=== PATIENT | male | born 1955 | race Caucasian/White ===

== ENCOUNTER 2023-01-28 23:38 | Emergency (ER) | payer MEDICARE, OTHER ==
[~2023-01-28] VITALS: Ht 172.7 cm; Wt 68.0 kg
[2023-01-29] MEDS ORDERED: ALBUTEROL SULFATE 2.5 MG/3 ML NEBU NEB ONE
[2023-01-29] MEDS ORDERED: IPRATROPIUM BROMIDE 0.5 MG/2.5 ML NEBU NEB ONE
[2023-01-29] MEDS ORDERED: ALBUTEROL SULFATE 2.5 MG/3 ML NEBU ONE (00:06)
[2023-01-29] MEDS ORDERED: IPRATROPIUM BROMIDE 0.5 MG/2.5 ML NEBU ONE (00:06)
[2023-01-29 00:15] VITALS: O2SAT 98
[2023-01-29 00:18] LABS: BASOPHILS # (AUTO) 0.1 K/UL (0.0-0.2); BASOPHILS % (AUTO) 0.9 % (0.0-2.0); EOSINOPHILS # (AUTO) 0.1 K/uL (0.0-0.7); EOSINOPHILS % (AUTO) 1.5 % (0.0-7.0); HEMATOCRIT 46.7 % (36.7-47.1); HEMOGLOBIN 15.7 g/dL (12.5-16.3); LYMPHOCYTES # (AUTO) 2.9 K/uL (0.8-4.8); LYMPHOCYTES % (AUTO) 42.1 % (20.5-51.5); MEAN CORPUSCULAR HEMOGLOBIN 32.3 uug (23.8-33.4); MEAN CORPUSCULAR HGB CONC 34 g/dL (32.5-36.3); MEAN CORPUSCULAR VOLUME 95.8 fL (73.0-96.2); MONOCYTES # (AUTO) 0.5 K/uL (0.1-1.30); MONOCYTES % (AUTO) 7.7 % (0.0-11.0); NEUTROPHILS # (AUTO) 3.3 K/uL (1.8-8.9); NEUTROPHILS % (AUTO) 47.8 % (38.5-71.5); PLATELET COUNT (AUTO) 193 K/uL (152-348); RED BLOOD CELL COUNT(AUTO) 4.87 MIL/uL (4.06-5.63); RED CELL DISTRIBUTION WIDTH 14.3 % (12.1-16.2); WHITE BLOOD COUNT (AUTO) 6.8 K/uL (3.6-10.2)
[2023-01-29 00:20] LABS: DIFFERENTIAL COMMENT 1
[2023-01-29 00:23] VITALS: O2SAT 99
[2023-01-29 00:30] VITALS: O2SAT 99
[2023-01-29 00:31] LABS: ALBUMIN 3.7 g/dL (3.4-5.0); BILIRUBIN,TOTAL 0.6 mg/dL (0.2-1.0); CALCIUM 8.6 mg/dL (8.5-10.1); CREATININE 1.7 mg/dL (0.6-1.3); MAGNESIUM 2.3 mg/dL (1.8-2.4); POTASSIUM 3.5 mmol/L (3.5-5.1); TOTAL PROTEIN, SERUM 7.1 g/dL (6.4-8.2)
[2023-01-29] MEDS ORDERED: methylPREDNISolone SOD SUCC 125 MG/2 ML VIAL IV ONE (00:45)
[2023-01-29] MEDS ORDERED: CICL15CR12 TP (00:54)
[2023-01-29] MEDS ORDERED: ATEN25TA PO (00:54)
[2023-01-29] MEDS ORDERED: ESOM20CA PO (00:54)
[2023-01-29] MEDS ORDERED: LEVO175T7 PO (00:54)
[2023-01-29] MEDS ORDERED: ROSU10TA2 PO (00:54)
[2023-01-29] MEDS ORDERED: ERGO500040 PO (00:54)
[2023-01-29] MEDS ORDERED: ASPI81TA31 PO (00:54)
[2023-01-29] MEDS ORDERED: GABA300T25 PO (00:54)
[2023-01-29] MEDS ORDERED: DOCU100C36 PO (00:54)
[2023-01-29] MEDS ORDERED: CELE100C PO (00:54)
[2023-01-29] MEDS ORDERED: AMLO-212 PO (00:54)
[2023-01-29] MEDS ORDERED: CLOP75TA33 PO (00:54)
[2023-01-29] MEDS ORDERED: methylPREDNISolone SOD SUCC 125 MG/2 ML VIAL ONE (00:55)
[2023-01-29 03:45] VITALS: O2SAT 94
== END 2023-01-29 03:59 | disposition short-term general hospital (02) ==
LOC: ER 23:44
DX: I44.1 Atrioventricular block, second degree (principal); R06.02 Shortness of breath; J45.909 Unspecified asthma, uncomplicated; E78.5 Hyperlipidemia, unspecified; E03.9 Hypothyroidism, unspecified; F17.210 Nicotine dependence, cigarettes, uncomplicated; Z20.822 Contact with and (suspected) exposure to COVID-19
CPT/HCPCS: 99285; 71045; 87804 ×2; 36415; 93005; 96374; 87426; 80053; 83880; 83735; 85025; 84484; 94640; 83605; J2930; A4606; A4663; J3590

== ENCOUNTER 2025-01-26 00:40 | Emergency (ER) | payer MEDICARE, OTHER ==
[~2025-01-26] VITALS: Ht 172.7 cm; Wt 101.6 kg
[~2025-01-26 00:40] MED LIST: AMLO-212 PO; ASPI81TA31 PO; ATEN25TA PO; CELE100C PO; CICL15CR12 TP; CLOP75TA33 PO; DOCU100C36 PO; ERGO125010 PO; ESOM20CA PO; GABA300T25 PO; LEVO175T7 PO; ROSU10TA2 PO
[2025-01-26] MEDS ORDERED: AMOX500C2 PO (01:08)
[2025-01-26] MEDS ORDERED: HYDR-3972 PO (01:08)
[2025-01-26] MEDS ORDERED: MULT-1276 PO (01:08)
[2025-01-26] MEDS ORDERED: TAMS0.4C PO (01:08)
[2025-01-26] MEDS ORDERED: HYDROMORPHONE 1 MG/1 ML DISP.SYRIN ONE ×3 (01:20→05:06)
[2025-01-26] MEDS ORDERED: ONDANSETRON 4 MG/2 ML VIAL ONE (01:20)
[2025-01-26] MEDS: ONDANSETRON 4 MG/2 ML VIAL IV ONE (01:23)
[2025-01-26 01:24] LABS: PLATELET COUNT (AUTO) 301 K/uL (152-348); RED BLOOD CELL COUNT(AUTO) 4.78 MIL/uL (4.06-5.63); RED CELL DISTRIBUTION WIDTH 13.1 % (12.1-16.2); WHITE BLOOD COUNT (AUTO) 6.6 K/uL (3.6-10.2)
[2025-01-26] MEDS: HYDROMORPHONE 1 MG/1 ML DISP.SYRIN IV ONE ×3 (01:24→05:09)
[2025-01-26 01:28] LABS: CREATININE 1.5 mg/dL (0.6-1.3); SODIUM SERUM 141.0 mmol/L (136-145); UREA NITROGEN, BLOOD 24.0 mg/dL (7-18)
[2025-01-26 01:33] LABS: ASPARTATE AMINOTRANSFERASE 16.0 U/L (15-37); TOTAL PROTEIN, SERUM 7.8 g/dL (6.4-8.2)
[2025-01-26] MEDS ORDERED: IV NORMAL SALINE 250 ML IV ONE (01:50)
[2025-01-26] MEDS ORDERED: IOHEXOL 350 100 ML INFUS..BTL ONE (01:50)
[2025-01-26] MEDS ORDERED: SWABABLE VALVE TRANSFER SET EA MC ONE (01:50)
[2025-01-26] MEDS: IV NORMAL SALINE 500 ML BAG IV ONE (02:08)
[2025-01-26] MEDS ORDERED: KETOROLAC TROMETHAMINE 15 MG INJ ONE (02:17)
[2025-01-26] MEDS: KETOROLAC TROMETHAMINE 15 MG INJ IVP ONE (02:20)
[2025-01-26 02:21] LABS: *BILIRUBIN,URIN NEGATIVE (NEGATIVE); *BLOOD, URINE 3+ (NEGATIVE); *CLARITY,URINE TURBID (CLEAR); *COLOR,URINE DARK YELLOW (YELLOW); *KETONES,URINE NEGATIVE (NEGATIVE); *PROTEIN,URINE 2+ (NEGATIVE); *UROBILINOGEN,URINE 0.2 E.U./dl (NORMAL); LEUKOCYTE ESTERASE ,URINE TRACE (NEGATIVE); NITRITE, URINE NEGATIVE (NEGATIVE); UGLUCOSE NEGATIVE (NEGATIVE)
[2025-01-26 02:36] LABS: SQUAMOUS EPITHELIAL CELL,UR FEW /HPF (NONE SEEN)
[2025-01-26 03:02] VITALS: BP 133/69
[2025-01-26] MEDS ORDERED: NITR100C PO (03:43)
[2025-01-26] MEDS ORDERED: CEFTRIAXONE /D5W 50ML IVPB **ER PYXIS IV ONE (03:45)
[2025-01-26 05:26] VITALS: BP 133/69; O2SAT 96
== END 2025-01-26 05:26 | disposition left against medical advice (07) ==
LOC: ER 00:58
DX: K80.20 Calculus of gallbladder without cholecystitis without obstruction (principal); R10.A1 Flank pain, right side; E11.9 Type 2 diabetes mellitus without complications; E78.5 Hyperlipidemia, unspecified; I25.2 Old myocardial infarction; I45.10 Unspecified right bundle-branch block; J44.9 Chronic obstructive pulmonary disease, unspecified; N13.6 Pyonephrosis; N40.0 Benign prostatic hyperplasia without lower urinary tract symptoms; Z79.02 Long term (current) use of antithrombotics/antiplatelets; Z79.82 Long term (current) use of aspirin; Z79.84 Long term (current) use of oral hypoglycemic drugs; Z79.890 Hormone replacement therapy; Z79.899 Other long term (current) drug therapy; Z87.442 Personal history of urinary calculi
CPT/HCPCS: 99285; 74174; 74176; 96365; 96375; 76705; 87081; 80076; 80048; 81001; 83690; 85025; 85730; 87086; 36415; 93005; 96376; J1885; J0696; J2405; Q9967; J1171 ×3; J7040; A4606; A4663